=== PATIENT | male | born 1995 | race Caucasian/White ===

== ENCOUNTER 2019-07-28 08:40 | Emergency (ER) | payer SELFPAY ==
[2019-07-28 08:45] VITALS: BP 143/85; PULSE 105; RESP 18; TEMP 36.9; O2SAT 97
--- NOTE | 2019-07-28 09:22 | ED.URI ---
HPI - URI/Sore Throat General Chief Complaint: Upper Respiratory Infection Stated Complaint: cough for week, ear pain, throat pain Time Seen by Provider: 07/28/19 09:05 Source: patient Mode of arrival: ambulatory Limitations: no limitations History of Present Illness HPI Narrative: Mehrdad is a very pleasant 23-year-old male patient. He presents ambulatory to the emergency room. He states that he has been coughing for the past 1 week. This is intermittent. He had some clear mucus production initially and since Wednesday he has had some yellowish green sputum. Maximum temperature 2 days ago was 99.7. He is afebrile now. His throat is sore. He has been taking some ibuprofen. Two days ago he thought that he had some tongue swelling. Today on examination there is no swelling of the tongue. He does have tonsillar enlargement and erythema with exudate on the surface of the tonsils. Two days ago he had some dry heaves and 1 episode of emesis but none now. No abdominal pain. No chest pain. No urinary symptoms. He has some nasal congestion. MD elicited complaint: cough, sore throat and nasal congestion Pertinent past history: other ( No past medical history) Onset (ago): week(s) ( 1 week) Consistency: intermittent Severity: moderate Description of mucous: yellow and green Exacerbating factors: other ( smoking) Relieving factors: nothing Context: other ( denies sick contacts. No travel history.) Associated symptoms: cough and other ( See HPI narrative) Treatments prior to arrival: ibuprofen Related Data Allergies Allergy/AdvReac Type Severity Reaction Status Date / Time amoxicillin AdvReac Unknown Unknown Verified 07/28/19 09:03 Review of Systems Review of Systems: All systems reviewed & are unremarkable except as noted in HPI and below Constitutional: Constitutional: Reports as per HPI, Denies chills, Denies fever(s) and Denies weakness Eyes: Eyes: Reports as per HPI, Reports no additional eye complaints and Denies change in vision ENT: Reports system reviewed and no additional complaints, except as documented, Denies dysphagia, Denies dizziness, Denies epistaxis, Reports nasal congestion and Reports sore throat Cardiovascular: Cardiovascular: Reports as per HPI, Reports no additional cardiovascular complaints, Denies chest pain and Denies radiating jaw, neck or arm pain Respiratory: Respiratory: Reports as per HPI, Reports no additional respiratory complaints, Reports cough, Denies dyspnea and Denies wheezing Gastrointestinal: Gastrointestinal: Reports as per HPI, Reports no additional gastrointestinal complaints, Denies diarrhea, Reports nausea and Reports vomiting Comments: see HPI narrative for details Genitourinary: Genitourinary: Reports no additional male genitourinary complaints, Reports as per HPI, Denies hematuria and Denies dysuria Musculoskeletal: Musculoskeletal: Reports no additional musculoskeletal complaints, Reports as per HPI, Denies back pain and Denies muscle cramps Integumentary/Breasts: Skin/Breast: Reports system reviewed and no additional complaints, except as docu, Reports as per HPI, Denies erythema and Denies rash Neurologic: Reports system reviewed and no additional complaints, except as documented, Reports as per HPI, Denies vertigo, Denies dizziness, Denies syncope, Denies headache(s), Denies focal weakness, Denies numbness and Denies weakness Psychiatric: Psychiatric: Reports no additional psychiatric complaints, Reports as per HPI and Denies anxiety Endocrine: Endocrine: Reports no additional endocrine complaints, Reports as per HPI and Denies polydipsia Hematologic/Lymphatic: Hematologic/Lymphatic: Reports no additional hematologic/lymphatic complaints, Reports as per HPI, Denies easy bleeding and Denies easy bruising Allergic/Immunologic: Allergic/Immunologic: Reports no additional allergic/immunologic complaints Comments: tonsils are swollen with a great on surface of tonsils PMFSH Surgical
[2019-07-28 09:24] LABS: Influenza Control Valid (Valid)
[2019-07-28 09:49] VITALS: TEMP 36.9
== END 2019-07-28 09:56 | disposition home or self-care (01) ==
PROVIDERS: Emergency Provider Surgery
DX: J11.1 Influenza due to unidentified influenza virus with other respiratory manifestations (principal)
CPT/HCPCS: 87804; 87880; 99283

== ENCOUNTER 2019-08-26 10:24 | Emergency (ER) | payer SELFPAY ==
[2019-08-26 10:42] VITALS: BP 145/88; PULSE 68; RESP 16; TEMP 36.6; O2SAT 100
--- NOTE | 2019-08-26 10:48 | ED.EXTPRO ---
HPI - Extremity Problem General Chief complaint: Unspecified Stated complaint: injured L foot Source: patient Mode of arrival: ambulatory Limitations: no limitations History of Present Illness HPI Narrative: Say 23-year-old male presents with left foot pain that began approximately 2 months ago has been occurring off and on with no known injuries, the pain is in the anterior surface of his left foot and it is warm red tender to touch. Currently the patient has no known injuries no fever or chills, no past medical history occasional alcohol and a positive smoker. Patient has been taking ibuprofen and naproxen with mild to moderate relief, but the the foot continues to be warm red and tender with some swelling. Complaint: extremity pain and extremity swelling Onset (ago): day(s) Pain Consistency: constant Location: left and lower extremity Severity scale (1-10): 6 Quality: aching Radiation: none Relieving factors: immobilization Exacerbating factors: range of motion Associated symptoms: denies other symptoms Related Data Allergies Allergy/AdvReac Type Severity Reaction Status Date / Time amoxicillin AdvReac Unknown Unknown Verified 07/28/19 09:03 Review of Systems Review of Systems: All systems reviewed & are unremarkable except as noted in HPI and below PMFSH Past Medical History Medical History Patient denies medical problems Surgical History Surgical History History of facial surgery Social History Social History Smoking packs per day: 0.5 Smoking cigarettes per day: 10.0 Years smoked: 6 Smoking pack-years: 3.00 Smoking status: Current every day smoker Tobacco type: cigarettes Alcohol intake: current Drinks per week: 2 Substance use: current Substance use type: marijuana Gender identity (if verbalized by the patient): Male Exam Const: General: no acute distress and alert Orientation/consciousness: patient oriented x3 HENMT: Head: normal to inspection Eyes: Conjunctivae: conjunctivae normal Pupils: Equal, round and reactive pupils present Neck: Neck: normal visual inspection Chest: Chest palpation & inspection: normal inspection of the chest Resp: Effort & Inspection: normal respiratory effort Auscultation: clear to auscultation bilaterally Cardio: Rate: regular rate Rhythm: regular rhythm GI: GI Palp: Yes Soft to palpation Back/Spine/Pelvis: Back: no CVA tenderness Skin: General skin exam: normal color Rashes: no rashes Extrem: Other: Left lower extremity mild edema swelling with redness warmth and tender to touch and movement. Course Vital Signs Vital signs: Vital Signs Temperature 36.6 C 08/26/19 10:42 Pulse Rate 68 08/26/19 10:42 Respiratory Rate 16 08/26/19 10:42 Blood Pressure 145/88 H 08/26/19 10:42 Pulse Oximetry 100 08/26/19 10:42 Temperature 36.6 C 08/26/19 10:42 Pulse Rate 68 08/26/19 10:42 Respiratory Rate 16 08/26/19 10:42 Blood Pressure 145/88 H 08/26/19 10:42 Pulse Oximetry 100 08/26/19 10:42 Critical Care Time Critical Care Time Critical Care Time: No Discharge Plan Discharge Clinical Impression: Gout Qualifiers: Gout site: foot Gout etiology: other secondary cause Chronicity: acute Laterality: left Qualified Code(s): M10.472 - Other secondary gout, left ankle and foot Patient Disposition: Home, Self-Care Condition: Stable Instructions: Antibiotic Form, Gout (ED) Additional Instructions: Take medicine as prescribed and follow-up with primary care physician within 1 to 2 weeks further evaluation and treatment. Prescriptions: New indomethacin 50 mg capsule 50 mg PO TID Qty: 21 RF: 0 Follow-up/Referrals: Darcie,REGAN Fu [Primary Care Provider] - Stand Alone Forms: Work/School Release IP Time of
[2019-08-26] MEDS: KETOROLAC (*BKC) 60 MG/2 ML VIAL IM (11:01)
== END 2019-08-26 11:15 | disposition home or self-care (01) ==
PROVIDERS: Emergency Provider Emergency Medicine; PCP Physician Assistant
DX: M10.472 Other secondary gout, left ankle and foot (principal)
CPT/HCPCS: 96372; 99283; J1885

== ENCOUNTER 2019-11-10 13:53 | Emergency (ER) | payer SELFPAY ==
[2019-11-10 14:17] VITALS: BP 146/98; PULSE 83; RESP 18; TEMP 37; O2SAT 98
[2019-11-10 14:28] LABS: Basophils Absolute Auto 0.06 K/mm3 (0.00-0.10); Basophils Percent Auto 0.9 % (0.0-1.0); Eosinophils Absolute Auto 0.22 K/mm3 (0.02-0.50); Eosinophils Percent Auto 3.5 % (1.0-6.0); Hematocrit 49.1 % (40.0-54.0); Hemoglobin 17.2 g/dL (14.0-18.0); Immature Granulocyte Absolute 0.03 K/mm3 (0.00-0.00); Immature Granulocyte Percent A 0.5 % (0.0-0.0); Lymphocytes Absolute Auto 2.28 K/mm3 (1.10-4.50); Mean Corpuscular Hemoglobin 29.5 pg (27.0-31.0); Mean Corpuscular Volume 84.2 fL (78.0-102.0); Mean Platelet Volume 9.8 fl (8.7-11.0); Monocytes Absolute Auto 0.43 K/mm3 (0.10-0.90); Monocytes Percent Auto 6.8 % (2.0-11.0); Neutrophils Absolute Auto 3.3 K/mm3 (1.7-7.2); Neutrophils Percent Auto 52.3 % (50.0-70.0); Platelet Count Result 343 K/mm3 (150-420); Red Blood Count 5.83 M/mm3 (4.70-6.10); Red Cell Distribution Width 12.9 % (11.6-14.4); White Blood Count 6.3 K/mm3 (4.8-10.8)
[2019-11-10 14:30] LABS: Add Urine Microscopic? NO; Appearance Urine Clear (Clear); Bilirubin Urine Negative (Negative); Blood Urine Negative (Negative); Color Urine Yellow (Yellow); Glucose Urine UA Negative (Negative); Ketones Urine Negative (Negative); Leukocyte Esterase Ur Negative (Negative); Nitrate Urine Negative (Negative); Protein Urine Negative (Negative); Specific Grav Ur 1.025 (1.010-1.020); Urobilinogen Urine 0.2 mg/dL (0.2-1.0)
--- NOTE | 2019-11-10 14:36 | ED.NAVMDI ---
HPI - Nausea/Vomiting/Diarrhea General Chief complaint: Nausea/Vomiting/Diarrhea Stated complaint: Diarrhea/Vomiting blood/slight cough Time Seen by Provider: 11/10/19 14:00 Source: patient Mode of arrival: ambulatory Limitations: no limitations History of Present Illness HPI Narrative: 24-year-old man comes in today complaining of 2 days of nausea, vomiting and diarrhea. Patient states he has also had a mild cough. He states his vomitus was read at 1st was concerned there was blood. He denies hematochezia, melena, fever, abdominal pain, rash and hematuria. He states a fellow co-worker would had similar symptoms and he spent time with the relative from out of state to his exposed to COVID. He denies shortness of breath. he states he has not had no oral intake today. MD elicited complaint: nausea, vomiting and diarrhea Onset (ago): day(s) (2) Description of vomiting: food contents, watery and bloody Description of diarrhea: watery Associated nausea: Yes Associated abdominal pain: No Exacerbating factors: eating Relieving factors: none Context: marijuana use and other ( Sick exposure) Associated symptoms: cough Treatment prior to arrival: none Related Data Allergies Allergy/AdvReac Type Severity Reaction Status Date / Time amoxicillin AdvReac Unknown Unknown Verified 07/28/19 09:03 Review of Systems Constitutional: Constitutional: Denies chills and Denies fever(s) Eyes: Eyes: Denies change in vision and Denies photophobia ENT: Denies dysphagia, Denies nasal congestion and Denies sore throat Cardiovascular: Cardiovascular: Denies chest pain and Denies radiating jaw, neck or arm pain Respiratory: Respiratory: Reports cough, Denies dyspnea and Denies wheezing Gastrointestinal: Gastrointestinal: Denies abdominal pain, Reports diarrhea, Reports nausea and Reports vomiting Genitourinary: Genitourinary: Denies dysuria and Denies urinary frequency Musculoskeletal: Musculoskeletal: Denies arthralgias and Denies joint swelling Integumentary/Breasts: Skin/Breast: Denies pruritus, Denies erythema and Denies rash Neurologic: Denies vertigo, Denies dizziness and Denies syncope Endocrine: Endocrine: Denies polydipsia and Denies polyuria Hematologic/Lymphatic: Hematologic/Lymphatic: Denies easy bleeding and Denies easy bruising Allergic/Immunologic: Allergic/Immunologic: Denies lip swelling and Denies wheezing PMFSH Past Medical History Medical History Patient denies medical problems Surgical History Surgical History History of facial surgery Social History Social History Smoking packs per day: 0.5 Smoking cigarettes per day: 10.0 Years smoked: 6 Smoking pack-years: 3.00 Smoking status: Current every day smoker Tobacco type: cigarettes Alcohol intake: current Drinks per week: 2 Substance use: current Substance use type: marijuana Gender identity (if verbalized by the patient): Male Exam Const: General: alert Nutritional Appearance: obese Orientation/consciousness: patient oriented x3 Limitations: no limitations Other: mild acute distress HENMT: Ears: external ears normal, TM's normal bilaterally and EAC's normal General nose exam: Normal nares present Mouth: Yes moist mucous membranes Throat: posterior oropharynx normal Eyes: Cornea: corneas normal Pupils: Equal, round and reactive pupils present EOM: EOMs intact bilaterally Resp: Effort & Inspection: normal respiratory effort and not labored Auscultation: clear to auscultation bilaterally, no rales, no rhonchi and no wheezes Cardio: Rate: regular rate Heart sounds: no murmurs GI: Inspection: non-distended GI Palp: Yes Soft to palpation, No Tenderness to palpation present (GI), No Guarding due to palpation present (GI), No Rigid due to palpation, No Palpable ma
[2019-11-10 14:43] LABS: Alanine Aminotransferase 44 U/L (16-63); Albumin Level 3.9 g/dL (3.4-5.0); Alkaline Phosphatase 84 U/L (46-116); Anion Gap 12.9 mmol/L (7-16); Aspartate Amino Transferase 19 U/L (15-37); Bilirubin,Total 0.4 mg/dL (0.00-1.00); Blood Urea Nitrogen 14 mg/dL (7-18); Calcium 9.1 mg/dL (8.5-10.1); Carbon Dioxide 29 mmol/L (21-32); Chloride 105 mmol/L (98-108); Estimated CRCL calculation 105 ml/min; Estimated Glomerular Filt Rate > 60; Glucose 101 mg/dL (70-99); Osmolality Calculated 296 mOsm/kg (285-295); Potassium 3.9 mmol/L (3.5-5.1); Sodium 143 mmol/L (136-145); Total Protein 8.1 g/dL (6.4-8.2)
[2019-11-10] MEDS: SODIUM CHLORIDE 0.9% IV 1,000 ML 999 ML IV CONT (14:54)
[2019-11-10] MEDS: ONDANSETRON INJ 4 MG/2 ML VIAL IV PUSH (14:54)
[2019-11-10 15:15] VITALS: PULSE 83; RESP 18; O2SAT 98
[2019-11-10 16:16] VITALS: BP 135/84; PULSE 67; RESP 14; O2SAT 98
[2019-11-11 13:52] LABS: SARS-CoV-2 RNA PCR Negative
== END 2019-11-10 16:15 | disposition home or self-care (01) ==
PROVIDERS: Emergency Provider Emergency Medicine; PCP Physician Assistant
DX: K52.9 Noninfective gastroenteritis and colitis, unspecified (principal)
CPT/HCPCS: 36415; 80053; 81003; 85025; 87635; 96361; 96374; 99283; 99284; C9803; J2405; J7030; U0003

== ENCOUNTER 2019-12-18 11:55 | Emergency (ER) | payer SELFPAY ==
--- NOTE | ~2019-12-18 | CT_ITS ---
EXAMINATION: CT brain wo con INDICATION: Headache COMPARISON: None TECHNIQUE: Standard unenhanced head CT. The dose-length product (DLP) was 605.33 mGy-cm. The mA was a djusted according to patient size. Iterative reconstruction technique was employed. FINDINGS: There is no intracranial hemorrhage, acute infarction, or abnormal mass lesion. The ventric les are normal. There is no abnormal mass effect or midline shift. The wilson-white matter differentiat ion is normal. The basal cisterns are patent. The orbits are normal. The paranasal sinuses, mastoids and calvarium are normal. IMPRESSION: 1. No acute intracranial abnormality. Reviewed, dictated and finalized at location A.
[2019-12-18 12:15] VITALS: BP 165/95; PULSE 88; RESP 15; TEMP 36.9; O2SAT 96
--- NOTE | 2019-12-18 12:21 | ED.NAVMDI ---
HPI - Nausea/Vomiting/Diarrhea General Chief complaint: Nausea/Vomiting/Diarrhea Stated complaint: vomiting Time Seen by Provider: 12/18/19 12:21 Source: patient Mode of arrival: ambulatory Limitations: no limitations History of Present Illness HPI Narrative: 24-year-old man comes in today complaining of daily vomiting for the last month. Patient states that has been worse recently. He states that he has some mild nausea but no abdominal pain accompanying the vomiting and usually occurs 1st thing in the morning. Sometimes there is small amount of blood in his vomitus. He is usually able to go about his day with no further vomiting. He denies any sick contacts or anyone at home with similar symptoms. He has had no new medications and takes no [id number] medications at present. He denies diarrhea, melena, blood in his stools, fever, weakness, lightheadedness, dizziness. States he sometimes has bad headaches. Use a daily marijuana user. MD elicited complaint: nausea, vomiting, diarrhea, abdominal pain and flank pain Onset (ago): month(s) (1) Description of vomiting: food contents, watery and bloody (small amounts occasionally) Associated abdominal pain: No Exacerbating factors: none Relieving factors: vomiting Context: marijuana use Associated symptoms: headaches Related Data Allergies Allergy/AdvReac Type Severity Reaction Status Date / Time amoxicillin AdvReac Unknown Unknown Verified 07/28/19 09:03 Review of Systems Constitutional: Constitutional: Denies chills, Denies fever(s) and Denies weakness Eyes: Eyes: Denies change in vision and Denies photophobia ENT: Denies dysphagia, Denies nasal congestion and Denies sore throat Cardiovascular: Cardiovascular: Denies chest pain and Denies radiating jaw, neck or arm pain Respiratory: Respiratory: Denies cough, Denies dyspnea and Denies wheezing Gastrointestinal: Gastrointestinal: Denies abdominal pain, Denies constipation, Denies diarrhea, Reports nausea and Reports vomiting Genitourinary: Genitourinary: Denies hematuria, Denies dysuria and Denies urinary frequency Musculoskeletal: Musculoskeletal: Denies back pain, Denies arthralgias and Denies joint swelling Integumentary/Breasts: Skin/Breast: Denies pruritus, Denies erythema and Denies rash Neurologic: Denies vertigo, Denies dizziness and Denies syncope Endocrine: Endocrine: Denies polydipsia and Denies polyuria Hematologic/Lymphatic: Hematologic/Lymphatic: Denies easy bleeding and Denies easy bruising Allergic/Immunologic: Allergic/Immunologic: Denies lip swelling and Denies wheezing [facility] Social History Social History Smoking packs per day: 0.5 Smoking cigarettes per day: 10.0 Years smoked: 6 Smoking pack-years: 3.00 Smoking status: Current every day smoker Tobacco type: cigarettes Alcohol intake: current Drinks per week: 2 Substance use: current Substance use type: marijuana Gender identity (if verbalized by the patient): Male Exam Const: General: healthy appearing, no acute distress and alert Orientation/consciousness: patient oriented x3 Limitations: no limitations HENMT: Head: normal to inspection Ears: external ears normal, TM's normal bilaterally and EAC's normal Mouth: Yes moist mucous membranes Throat: posterior oropharynx normal Resp: Effort & Inspection: normal respiratory effort and not labored Auscultation: clear to auscultation bilaterally, no rales, no rhonchi and no wheezes Cardio: Rate: regular rate Rhythm: regular rhythm Heart sounds: no murmurs GI: Inspection: non-distended GI Palp: Yes Soft to palpation, No Tenderness to palpation present (GI) and No Guarding due to palpation present (GI) Skin: General skin exam: normal color, no jaundice and no pallor Rashes: no rashes Neuro: General: patient oriented x3, moves all extremities, no focal motor deficits and CN's II-XI intact bilaterally Speech
[2019-12-18 12:48] LABS: Add Urine Microscopic? NO; Appearance Urine Clear (Clear); Bilirubin Urine Negative (Negative); Blood Urine Negative (Negative); Color Urine Yellow (Yellow); Glucose Urine UA Negative (Negative); Ketones Urine Negative (Negative); Leukocyte Esterase Ur Negative LEU/UL (Negative); Nitrate Urine Negative (Negative); Protein Urine Negative (Negative); Specific Grav Ur 1.025 (1.010-1.020); Urobilinogen Urine 0.2 mg/dL (0.2-1.0); pH Urine 5.5 (5.0-8.0)
[2019-12-18 12:56] LABS: Base Excess ABG 0.5 mmol/L (0-2); Carboxyhemoglobin 1.1 % (0-1.5); HCO3 ABG 25.2 mmol/L (23-29); Methemoglobin ABG 0.1 % (0-1.5); Oxygen Content ABG 21.5 %vol (16.0-22.0); Oxygen Saturation ABG 88.9 % (95-97); Oxyhemoglobin 87.8 % (94-100); PCO2 ABG 40.9 mmHg (35-45); PO2 ABG 52.8 mmHg (80-90); Total Hemoglobin 17.5 g/dL; pH ABG 7.41 (7.35-7.45)
[2019-12-18 12:58] LABS: Basophils Absolute Auto 0.07 K/mm3 (0.00-0.10); Basophils Percent Auto 1.1 % (0.0-1.0); Eosinophils Absolute Auto 0.25 K/mm3 (0.02-0.50); Hematocrit 48.5 % (40.0-54.0); Hemoglobin 16.8 g/dL (14.0-18.0); Immature Granulocyte Absolute 0.01 K/mm3 (0.00-0.00); Immature Granulocyte Percent A 0.2 % (0.0-0.0); Lymphocytes Absolute Auto 2.19 K/mm3 (1.10-4.50); Lymphocytes Percent Auto 34.7 % (18.0-42.0); Mean Corpuscular HGB Conc 34.6 g/dL (32.0-36.0); Mean Corpuscular Hemoglobin 29.3 pg (27.0-31.0); Mean Corpuscular Volume 84.6 fL (78.0-102.0); Mean Platelet Volume 9.4 fl (8.7-11.0); Monocytes Absolute Auto 0.24 K/mm3 (0.10-0.90); Monocytes Percent Auto 3.8 % (2.0-11.0); Neutrophils Absolute Auto 3.6 K/mm3 (1.7-7.2); Neutrophils Percent Auto 56.2 % (50.0-70.0); Platelet Count Result 314 K/mm3 (150-420); Red Blood Count 5.73 M/mm3 (4.70-6.10); Red Cell Distribution Width 12.5 % (11.6-14.4); White Blood Count 6.3 K/mm3 (4.8-10.8)
[2019-12-18 13:12] LABS: Alanine Aminotransferase 44 U/L (16-63); Albumin Level 3.9 g/dL (3.4-5.0); Alkaline Phosphatase 70 U/L (46-116); Anion Gap 7.6 mmol/L (7-16); Aspartate Amino Transferase 30 U/L (15-37); Bilirubin,Total 0.6 mg/dL (0.00-1.00); Blood Urea Nitrogen 14 mg/dL (7-18); Calcium 9.2 mg/dL (8.5-10.1); Carbon Dioxide 31 mmol/L (21-32); Chloride 109 mmol/L (98-108); Estimated Glomerular Filt Rate > 60; Glucose 122 mg/dL (70-99); Lipase 162 U/L (73-393); Osmolality Calculated 299 mOsm/kg (285-295); Potassium 3.6 mmol/L (3.5-5.1); Sodium 144 mmol/L (136-145); Total Protein 8.1 g/dL (6.4-8.2)
[2019-12-18 14:24] VITALS: BP 135/90
== END 2019-12-18 14:25 | disposition home or self-care (01) ==
PROVIDERS: Emergency Provider Emergency Medicine
DX: R11.10 Vomiting, unspecified (principal)
CPT/HCPCS: 36415; 36600; 70450; 80053; 81003; 82375; 82805; 83050; 83690; 85025; 99283; 99284

== ENCOUNTER 2020-01-15 12:01 | Emergency (ER) | payer SELFPAY ==
--- NOTE | ~2020-01-15 | XR_ITS ---
EXAMINATION: XR knee RT 3V DATE: 01/15/2020 12:28 INDICATION: Right knee pain and swelling. TECHNIQUE: 3 views of right knee were obtained. COMPARISON: None. FINDINGS: Bone alignment is normal. No fracture. Joint spaces are well maintained. There is no knee j oint effusion. There is anterior knee soft tissue swelling. IMPRESSION: 1. No fracture. Reviewed, dictated and finalized at location A. IMPRESSION: 1. No fracture.
[2020-01-15 12:10] VITALS: BP 163/89; PULSE 80; RESP 17; TEMP 36.9; O2SAT 97
--- NOTE | 2020-01-15 12:16 | ED.LOWEXIN ---
HPI - Extremity Injury (Lower) General Chief Complaint: Extremity Injury, Lower Stated Complaint: injury to r knee Time Seen by Provider: 01/15/20 12:02 Source: patient Mode of arrival: ambulatory (with crutches) Limitations: no limitations History of Present Illness complaint: knee injury (right) Related Data Allergies Allergy/AdvReac Type Severity Reaction Status Date / Time amoxicillin AdvReac Unknown Unknown Verified 07/28/19 09:03 Review of Systems Review of Systems: All systems reviewed & are unremarkable except as noted in HPI and below PMFSH Past Medical History Medical History Patient denies medical problems Surgical History Surgical History History of facial surgery Social History Social History Smoking packs per day: 0.5 Smoking cigarettes per day: 10.0 Years smoked: 6 Smoking pack-years: 3.00 Smoking status: Current every day smoker Tobacco type: cigarettes Alcohol intake: current Drinks per week: 2 Substance use: current Substance use type: marijuana Gender identity (if verbalized by the patient): Male Exam Const: General: healthy appearing, no acute distress and alert Nutritional Appearance: well nourished Orientation/consciousness: patient oriented x3 HENMT: Head: normal to inspection Ears: external ears normal Eyes: Conjunctivae: conjunctivae normal Pupils: Equal, round and reactive pupils present EOM: EOMs intact bilaterally Neck: Neck: normal visual inspection Resp: Effort & Inspection: normal respiratory effort Auscultation: clear to auscultation bilaterally Cardio: Rate: regular rate Rhythm: regular rhythm GI: GI Palp: Yes Soft to palpation and No Tenderness to palpation present (GI) Auscultation: normal bowel sounds Back/Spine/Pelvis: Cervical Spine: cervical ROM normal Thoracic/Lumbar Spine: thoraco-lumbar ROM normal Skin: General skin exam: normal color Rashes: no rashes Neuro: General: patient oriented x3 and moves all extremities Speech: normal speech Extrem: General: no pedal edema Right lower extremity: knee Details: tenderness Location: of the patella Details: medially, laterally, superiorly and inferiorly, swelling Location: of the patella, normal ROM, knee ligament exam normal Details: anterior drawer test normal, valgus stress test normal, varus stress test normal and Gretta?s test normal and Gisela's Test Details: negative medially and laterally; no lacerations, no ecchymosis, no crepitus and no unusual warmth Psych: Appearance: grossly normal and well kempt Mental Status: mental status grossly normal Affect: normal affect Attitude: cooperative Thought content: Yes Normal thought content present Course Vital Signs Vital signs: Vital Signs Temperature 36.9 C 01/15/20 12:10 Pulse Rate 80 01/15/20 12:10 Respiratory Rate 17 01/15/20 12:10 Blood Pressure 163/89 H 01/15/20 12:10 Pulse Oximetry 97 01/15/20 12:10 Temperature 36.9 C 01/15/20 12:10 Pulse Rate 80 01/15/20 12:10 Respiratory Rate 20 01/15/20 13:09 Blood Pressure 163/89 H 01/15/20 12:10 Pulse Oximetry 97 01/15/20 12:10 Discharge Plan Discharge Clinical Impression: Right knee sprain Qualifiers: Encounter type: initial encounter Involved ligament of knee: unspecified ligament Qualified Code(s): S83.91XA - Sprain of unspecified site of right knee, initial encounter Patient Disposition: Home, Self-Care Condition: Stable Instructions: Knee Sprain (ED) Prescriptions: New nabumetone 750 mg tablet 750 mg PO BID PRN (Reason: knee pain) Qty: 20 RF: 0 Follow-up/Referrals: Darcie,REGAN Fu [Primary Care Provider] - Time of Disposition: 13:01 Discharge Date/Time: 01/15/20 13:10
[2020-01-15 13:09] VITALS: RESP 20
== END 2020-01-15 13:10 | disposition home or self-care (01) ==
PROVIDERS: Emergency Provider Emergency Medicine; PCP Physician Assistant
DX: S83.91XA Sprain of unspecified site of right knee, initial encounter (principal)
CPT/HCPCS: 73562; 99283

== ENCOUNTER 2022-09-08 19:30 | Emergency (ER) | payer SELFPAY ==
[2022-09-08 19:33] VITALS: BP 156/102; PULSE 99; RESP 20; TEMP 37; O2SAT 100
--- NOTE | 2022-09-08 19:34 | ED.EXTPRO ---
HPI - Extremity Problem General Chief complaint: Extremity Injury, Upper Stated complaint: arm pain Time Seen by Provider: 09/08/22 19:34 Source: patient and RN notes reviewed Mode of arrival: ambulatory Limitations: no limitations History of Present Illness HPI Narrative: patient states that he has been having some swelling and pain in his left elbow. He denies any trauma. He denies accidentally bumping into hurting in her falling onto it. He does not have any evidence of an abrasion. He said he has not been doing any extra activity that would cause an overuse injury. He denies any fever chills. Complaint: extremity pain Onset (ago): day(s) (2) Pain Consistency: constant Location: left and upper extremity Quality: burning and constant Radiation: proximal Relieving factors: nothing Exacerbating factors: range of motion and palpation Associated symptoms: denies other symptoms Related Data Allergies Allergy/AdvReac Type Severity Reaction Status Date / Time amoxicillin AdvReac Unknown Unknown Verified 07/28/19 09:03 Review of Systems Review of Systems: All systems reviewed & are unremarkable except as noted in HPI and below PMFSH Past Medical History Medical History (Updated 09/08/22 @ 19:42 by Nestor Mcwilliams MD) Patient denies medical problems Surgical History Surgical History History of facial surgery Social History Social History Smoking packs per day: 0.5 Smoking cigarettes per day: 10.0 Years smoked: 6 Smoking pack-years: 3.00 Smoking status: Current every day smoker Tobacco type: cigarettes Alcohol intake: current Drinks per week: 2 Substance use: current Substance use type: marijuana Gender identity (if verbalized by the patient): Male Course Vital Signs Vital signs: Vital Signs Temperature 37.0 C 09/08/22 19:33 Pulse Rate 99 09/08/22 19:33 Respiratory Rate 20 09/08/22 19:33 Blood Pressure 156/102 H 09/08/22 19:33 Pulse Oximetry 100 09/08/22 19:33 Oxygen Delivery Room Air 09/08/22 19:33 Temperature 36.7 C 09/08/22 20:01 Pulse Rate 88 09/08/22 20:01 Respiratory Rate 20 09/08/22 20:01 Blood Pressure 131/81 09/08/22 20:01 Pulse Oximetry 100 09/08/22 20:01 Oxygen Delivery Room Air 09/08/22 20:01 MDM - Extremity (Nontraumatic) Differential Diagnosis Differential diagnosis: Likely other ( Olecranon bursitis, septic bursitis, tendonitis, overuse injury) Discharge Plan Discharge Clinical Impression: Bursitis, olecranon Qualifiers: Laterality: left Qualified Code(s): M70.22 - Olecranon bursitis, left elbow Patient Disposition: Home, Self-Care Condition: Stable Instructions: Antibiotic Form, Elbow Bursitis (ED) Additional Instructions: ice and elevate. Prescriptions: New nabumetone 750 mg tablet 750 mg PO BID 10 Days Qty: 20 0RF cephalexin 500 mg capsule 500 mg PO Q8H 10 Days Qty: 30 0RF No Action nabumetone 750 mg tablet 750 mg PO BID PRN (Reason: knee pain) Qty: 20 0RF Follow-up/Referrals: UNKNOWN,DOCTOR [Primary Care Provider] - Stand Alone Forms: Work/School Release IP Time of Disposition: 19:44
[2022-09-08] MEDS: IBUPROFEN 600 MG TABLET PO (19:54)
[2022-09-08] MEDS: CEPHALEXIN 500 MG CAPSULE PO (20:00)
[2022-09-08 20:01] VITALS: BP 131/81; PULSE 88; RESP 20; TEMP 36.7; O2SAT 100
== END 2022-09-08 20:03 | disposition home or self-care (01) ==
PROVIDERS: Emergency Provider Emergency Medicine
DX: M70.22 Olecranon bursitis, left elbow (principal); F17.210 Nicotine dependence, cigarettes, uncomplicated
CPT/HCPCS: 99283; A9270